=== PATIENT | male | born 1945 | race Caucasian/White ===

== ENCOUNTER 2022-01-29 15:32 | Observation (INO) | payer MEDICARE, BC, SELFPAY ==
[2022-01-29] VITALS (8 sets, daily range): BP systolic 135–163; BP diastolic 75–94; PULSE 62–92; RESP 16–18; TEMP 36.4–37.1; O2SAT 94–98; BMI 30.8
--- NOTE | 2022-01-29 15:18 | EKG12_ITS ---
Test Reason : POST OP Blood Pressure : / mmHG Vent. Rate : 082 BPM Atrial Rate : 082 BPM P-R Int : 280 ms QRS Dur : 144 ms QT Int : 424 ms P-R-T Axes : 072 -50 056 degrees QTc Int : 495 ms Sinus rhythm with 1st degree A-V block with occasional Premature ventricular complexes Left axis deviation Left bundle branch block Abnormal ECG Confirmed by SONAL EHRNANDEZ, NATALEE ([id number]), editor department ROMAINE BRIGGS ([id number]) on 02/04/2022 8:41:46 AM Referred By: EVELIN Confirmed By:NATALEE PRUITT MD
[2022-01-29] MEDS: 0.9% Saline Lock 10 ML Syringe IV (15:52)
[2022-01-29] MEDS: 0.9% Normal Saline 1,000 ML 75 ML IV (15:52)
[2022-01-29] MEDS: Ondansetron 4 MG/2 ML Vial IV (15:52)
[2022-01-29 16:10] LABS: Anion Gap 8 (5-15); BUN 32 mg/dL (7-18); BUN/Creat Ratio 15.2 RATIO (10-20); Calcium,Total 9.1 mg/dL (8.5-10.1); Chloride 101 mmol/L (98-107); Creatinine, Serum 2.11 mg/dL (0.70-1.30); EST Glomerular Filtration Rate 33 mL/min (>60); Est Glom Filt Rate - Afr Amer 39 mL/min (>60); Estimated Creatinine Clearance 30.27 ml/min; Glucose 121 mg/dL (74-106); Potassium 3.4 mmol/L (3.5-5.1); Sodium Level 136 mmol/L (136-145)
--- NOTE | 2022-01-29 21:58 | HP.PCM_ITS ---
HPI - General General Date of Admission: 01/29/22 HPI Narrative NIKKO WASHBURN, is a 76 M who presents high-grade obstruction in the right side due to a large ureteral calculi also has a right renal calculi PFSH Medical History (Updated 01/29/22 @ 21:[address] Carlos Mark MD) Hypertension Kidney stones Non-smoker Restless legs Scarlet fever Home Medications amlodipine 2.5 mg tablet 10 mg PO DAILY Check with primary doctor 07/23/13 [History Last Taken 01/29/22 08:00] oxycodone-acetaminophen 5 mg-325 mg tablet 1 - 2 tab PO Q4H PRN PRN Pain #20 tabs 07/23/13 [Rx Last Taken 01/29/22 11:00] Sulindac 150 mg PO BID STOMACH POLYP 07/31/13 [History Last Taken 01/29/22 10:00 ] triamterene-hydrochlorothiazid 37.5 mg PO/SL DAILY BP 01/29/22 [History Last Taken 01/29/22 10:00] Allergy/AdvReac Type Severity Reaction Status Date / Time No Known Allergies Allergy Verified 07/23/13 14:12 Social History Smoking Status: Never smoker ROS ROS Narrative Severe right flank pain Vital Signs Vital Signs Vital Signs: 01/29/22 15:28 01/29/22 19:30 01/29/22 21:09 Temperature 98.0 F 97.9 F Temperature Source Oral Oral Pulse Rate 62 71 78 Respiratory Rate 16 16 16 Blood Pressure 141/82 H 143/81 H Blood Pressure [BP] 163/83 H Blood Pressure Mean 101 101 Blood Pressure Mean [BP] 109 Blood Pressure Source Monitor Monitor Blood Pressure Source [BP] Monitor Blood Pressure Position Semi-Fowlers Semi-Fowlers Blood Pressure Position [BP] Supine Blood Pressure Location Left Arm Right Arm Blood Pressure Location [BP] Left Arm Pulse Ox 94 97 98 Oxygen Delivery Method Room Air Room Air Room Air Weight Weight: 97.4 kg Body Mass Index (BMI) 30.8 Physical Exam Const alert and oriented x3 General Appearance: cooperative HEENT normocephalic, head/scalp atraumatic, EAC's normal and TM's normal bilaterally Eyes PERRL and EOMs intact bilaterally Pupil: sluggish Neck no lymphadenopathy, supple and no JVD General: trachea midline Lymph Lymphatic: no lymphadenopathy noted, lymphedema and lymphadenopathy Resp normal respiratory effort, normal air movement and clear to auscultation bilaterally Cardio regular rate, regular rhythm and peripheral pulses 2+ throughout GI soft to palpation, non-tender and non-distended Extremity normal capillary refill and no clubbing, cyanosis or edema General Extremity: no tenderness to palpation of joints or extremities Skin no rashes or lesions noted General Skin Exam: turgor normal Lesions: no lesions Rashes: no rashes Neuro CN's II-XII intact bilaterally Speech: speech normal Motor Exam: strength 5/5 throughout; Negative for general weakness Psych thought process normal, cooperative and affect normal Appearance: appropriate Results Medical Records Data Attestation: I reviewed the patient's medical records Lab / Micro Data Attestation: I reviewed the patient's lab results. Result Diagrams: 01/29/22 15:43 Labs: Laboratory Results - last 24 hr 01/29/22 15:43: Sodium 136, Potassium 3.4 L, Chloride 101, Carbon Dioxide 27.0, Anion Gap 8, BUN 32 H, Creatinine 2.11 H, Estim Creat Clear Calc 30.27, Est GFR (MDRD) Af Amer 39 L, Est GFR (MDRD) Non-Af 33 L, BUN/Creatinine Ratio 15.2, Glucose 121 H, Calcium 9.1 Assessment & Plan Assessment/Plan (1) Kidney stones: PLAN: Plan for right ureteroscopy laser lithotripsy of stone and ureter and stent placement may have to treat the other stone with shockwave lithotripsy later.
[2022-01-29] MEDS: Cefazolin 1 GM/50 ML BAG IV (22:00)
--- NOTE | 2022-01-29 22:31 | DCINST_ITS ---
Discharge Instructions Diet Discharge Diet: No restrictions Follow Up Care Please Follow Up With: Carlos Mark MD Test Results: Test results from this visit will be discussed in further detail at your follow- up appointment, if applicable. Discharge Plan Admission Admit Date/Time: 01/29/22 15:32 Primary Reason for Your Visit: kidney stones Attending Provider: Carlos Mark Primary Care Provider: Andreas Calderon Discharge Orders/Prescriptions Prescriptions: Continued amlodipine 2.5 MG tablet 10 mg PO DAILY MDD BP oxycodone-acetaminophen 1 TABLET tablet 1 - 2 tab PO Q4H PRN PRN (Reason: Pain) Qty: 20 0RF Sulindac 150 mg PO BID triamterene-hydrochlorothiazid 37.5 mg PO/SL DAILY Referrals / Follow Up: Carlos Mark MD [STAFF PHYSICIAN] - Andreas Calderon MD [Primary Care Provider] -
--- NOTE | 2022-01-29 22:33 | PCM.OPRPT ---
Report of Operation Date of Procedure: 01/29/22 Pre-Operative Diagnosis: right obstruction ureteral calculi Post-Operative Diagnosis: same and right renal calculi Surgery/Procedure Performed:: Cystoscopy, balloon dilation of right ureter, right ureteroscopy laser lithotripsy of stone and stent placement. Description of Surgical Findings:: This is a patient who presents to the hospital for treatment for an obstructing distal ureter calculi. I discussed with the patient how the surgery would be performed and we reviewed the risks and benefits of the surgery. The risk and benefits include the risk of failure to remove the stone completely and that the patient may need multiple procedures. We discussed the risk of an infection, the risk of bleeding. We discussed the very rare risk of serious complicated injury to the ureter. The patient understands that if the stone is not able to be removed safely that we may abort the procedure and place a stent. After full discussion and all questions address with the patient the consent form was signed the side was marked appropriately and the patient was taken back to the operating room for the procedure. The patient was taken back to the operating room. After induction of anesthesia by the anesthesiology team the patient was placed in dorsolithotomy position. The genitals were prepped and draped in usual sterile fashion. I went into the bladder with a 21 Kiswahili rigid cystourethroscope through the urethra. Upon entering the bladder I inspected the trigone the left and right ureteral orifice and the bladder itself. I then cannulated the Right ureteral orifice and advanced a 0.038 Glidewire up into the kidney. Then over the Glidewire I advanced a 5 Fr Ureteral catheter and performed a retrograde pyelogram with about 10cc of contrast, to delineate the anatomy and identify the stone location. Then a ureteral balloon dilator was advanced over the wire and the distal ureter was balloon dilated with a 12 Fr x 5cm balloon dilator. After 3 minutes of dilating the ureter the balloon was backloaded off the 0.038 glidewire then the safety wire was left in place. I then placed a second 0.038 Guidewire as a working wire and over the working 0.038 guidewire I went in with a Flexible 7.9fr ureteroscope. I was able to go inside with the 7.9Fr flexible utereroscope and I pulled out the working guidewire and then through the 7.9 fr flexible ureteroscope I ascended up the ureter with direct visualization until the stone was located in the proximal urerter, then I engaged the stone with laser lithotripsy using a 270miron laser fiber with energy setting of 6 Hertz and 0.6 J until the stone was lasered into tiny little pieces that should pass on their own. I could not reach the other stone in the kidney so I decided to place a stent and bring him back for ESWL. After successful laser lithotripsy of the stone and stone fragements, a retrograde pyelogram was performed with 10cc of contrast and no extravasation of contrast or perforation was identified in the ureter. I then backed out of the ureter left the wire in place and then over the 0.038 guidewire I placed a double coiled pigtail ureteral stent. The ureteral stent was advanced over the 0.038 guidewire under direct fluoroscopic guidance and direct cystoscopic visual guidance, once the stent was in good position I pulled the wire and the stent coiled in the kidney and bladder in good position. I then drained the patient's bladder and the cystoscope was removed and the patient was taken back to the recovery room in good position. The patient was given discharge instructions to call the office for instructions. Surgeon: Carlos Mark Type of Anesthesia: General Drains: stent Admit VTE Documentation VTE Present on Admission: No VTE Mechan Device Prophylaxis: SCD's VTE Pharm Prophylaxis ordered?: No
--- NOTE | 2022-01-29 22:42 | EKG12_ITS ---
Test Reason : PRE OP Blood Pressure : / mmHG Vent. Rate : 067 BPM Atrial Rate : 067 BPM P-R Int : 304 ms QRS Dur : 150 ms QT Int : 450 ms P-R-T Axes : 087 -17 107 degrees QTc Int : 475 ms Sinus rhythm with 1st degree A-V block with Premature atrial complexes Left bundle branch block Abnormal ECG Confirmed by SONAL HERNANDEZ, NATALEE ([id number]), senior editor ROMAINE BRIGGS ([id number]) on 02/04/2022 9:00:17 AM Referred By: BLAZE Confirmed By:NATALEE PRUITT MD
[2022-01-29] MEDS: Lactated Ringers 1,000 ML 15 ML IV (23:14)
[2022-01-29 23:23] LABS: Troponin-I HS 48 pg/mL (3.0-78.0)
--- NOTE | 2022-01-29 23:57 | NURSING ---
pt back from Sx. pt called his for an update.
[2022-01-30 01:37] VITALS: BP 149/87; PULSE 71; RESP 16; TEMP 36.5; O2SAT 94
[2022-01-30 03:43] VITALS: BP 151/85; PULSE 65; RESP 16; TEMP 36.6; O2SAT 99
[2022-01-30 08:20] VITALS: BP 142/80; PULSE 68; RESP 18; TEMP 37.1; O2SAT 94
[2022-01-30] MEDS: Triamterene 37.5MG/Hctz 25MG Capsule 1 CAP PO (08:23)
[2022-01-30] MEDS: amLODIPine 10 MG Tablet PO (08:23)
--- NOTE | 2022-01-30 10:15 | PCM.PN.BLA ---
Progress Note s/p laser of right ureteral calculi, late last night, anesthesia requested a cardiology consult for new LBBB, pt stable no symptoms, cardiology questioned the urgency of inpatient consult and I agreed to discharge patient and can see cardiology as an outpatient. my office gabriella call him for instruction on treatment of the remaining stones.
[2022-01-30 11:31] VITALS: BP 146/89; PULSE 70; RESP 18; TEMP 36.6; O2SAT 92
== END 2022-01-30 12:51 | disposition home or self-care (01) ==
PROVIDERS: Anesthesiology; Admitting Provider Urology; PCP Family Medicine Geriatric Medicine; Visit Provider Urology
PROC: 0TJ98ZZ Inspection of Ureter, Via Natural or Artificial Opening Endoscopic (ICD-10-PCS; CPT 52352; principal; 2022-01-29 19:45)
DX: N20.2 Calculus of kidney with calculus of ureter (principal); I10 Essential (primary) hypertension; Z79.899 Other long term (current) drug therapy; G25.81 Restless legs syndrome
CPT/HCPCS: 52356; 50706; 00918; 76000; 80048; 84484; 93005; 96361; 96374; 99218; J7030; J7120; A4216; C1726; C1769; C2617; G0378; J2405

== ENCOUNTER 2022-02-25 08:45 | Day surgery (SDC) | payer MEDICARE, BC, SELFPAY ==
--- NOTE | 2022-02-25 08:53 | RAD_ITS ---
EXAM: XR ABDOMEN, 1 VIEW CLINICAL INDICATION: RIGHT KIDNEY STONE/PREOP TECHNIQUE: Frontal supine view of the abdomen/pelvis. This report was created using [employer] report generation technology. COMPARISON: None. FINDINGS: LOWER THORAX: No acute pathology. INTRAPERITONEAL SPACE: Multiple surgical sutures are seen in the abdomen. GASTROINTESTINAL TRACT: Unremarkable. Non-obstructive. No bowel or stomach distention. ORGANS: Right ureteral stent is in place. There is a right calyceal stone present. No organomegaly. BONES/JOINTS: No acute pathology. SOFT TISSUES: No acute pathology. RAD/Abdomen Single View IMPRESSION: Right ureteral stent in good position. There is a right kidney stone present. Electronically Signed: Duane Pozo MD at 3:00 EDT ,
[2022-02-25 09:30] VITALS: BP 173/80; PULSE 84; RESP 18; TEMP 36.2; O2SAT 100; BMI 31.6
[2022-02-25] MEDS: Lactated Ringers 1,000 ML 15 ML IV (09:44)
--- NOTE | 2022-02-25 12:54 | HP.PCM_ITS ---
HPI - General General Date of Admission: 02/25/22 Chief Complaint: Right kidney stones HPI Narrative NIKKO WASHBURN, is a 76 M who presents right shockwave lithotripsy for stones in the right kidney he has a stent in place he had a prior ureteroscopy and laser for stone in the ureter. [facility] Medical History (Updated 02/18/22 @ 13:05 by Blanche Brand) Cardiology follow-up encounter Familial polyposis History of edema History of irregular heartbeat History of pain when walking History of stress test Hypertension Kidney stones Non-smoker Prostate disease Restless legs Scarlet fever Shortness of breath on exertion Wears glasses Home Medications amlodipine 2.5 mg tablet 10 mg PO DAILY Check with primary doctor 07/23/13 [History Last Taken 02/25/22 07:00] Sulindac 150 mg PO BID 07/31/13 [History Last Taken 01/29/22 10:00] triamterene-hydrochlorothiazid 37.5 mg PO/SL DAILY BP 01/29/22 [History Last Taken 01/29/22 10:00] tumeric 100 mg-matt 150 mg-olive 50 mg-oreg 150 mg-caprylate capsule 1 cap PO DAILY 02/18/22 [History Last Taken Unknown] zolpidem 10 mg tablet (Ambien) 5 mg PO QHS 02/18/22 [History Last Taken Unknown] Allergy/AdvReac Type Severity Reaction Status Date / Time No Known Allergies Allergy Verified 02/25/22 09:35 Surgical History (Updated 02/18/22 @ 13:05 by Blanche Brand) History of colostomy reversal History of cystoscopy History of partial colectomy Hx of colonoscopy Social History Smoking Status: Never smoker Vital Signs Vital Signs Vital Signs: 02/25/22 09:30 02/25/22 09:30 Temperature 97.1 F L Temperature Source Temporal Pulse Rate 84 Respiratory Rate 18 Respiratory Pattern Normal Blood Pressure 173/80 H Blood Pressure Mean 111 Blood Pressure Source Monitor Blood Pressure Position Sitting Blood Pressure Location Left Arm Pulse Ox 100 Oxygen Delivery Method Room Air Weight Weight: 97 kg Body Mass Index (BMI) 31.6 Physical Exam Const alert and oriented x3 General Appearance: cooperative HEENT normocephalic and head/scalp atraumatic Eyes PERRL and EOMs intact bilaterally Neck supple, no JVD and no carotid bruits Resp normal respiratory effort, normal air movement and clear to auscultation bilaterally Cardio regular rate and no murmurs GI normal to inspection, nondistended, normoactive bowel sounds and soft to palpation Extremity normal capillary refill General Extremity: no tenderness to palpation of joints or extremities; Negative for edema Skin no rashes or lesions noted and no wounds General Skin Exam: no breakdown Neuro CN's II-XII intact bilaterally Psych affect normal Appearance: appropriate Results Medical Records Data Attestation: I reviewed the patient's medical records Lab / Micro Data Attestation: I reviewed the patient's lab results. Assessment & Plan Assessment/Plan (1) Kidney stones: PLAN: Plan for right shockwave lithotripsy here he has a stent in place he had prior ureteroscopy for stone in the right ureter.
--- NOTE | 2022-02-25 12:59 | DCINST_ITS ---
Discharge Instructions Diet Discharge Diet: No restrictions Activity Discharge Activity: Return to Normal Activity Dressing / Incision Call your doctor if your incision/area has: Continuous Slow Oozing Follow Up Care Please Follow Up With: Carlos Mark MD Test Results: Test results from this visit will be discussed in further detail at your follow- up appointment, if applicable. Discharge Plan Admission Primary Reason for Your Visit: Right ESWL Attending Provider: Carlos Mark Primary Care Provider: Andreas Calderon Discharge Orders/Prescriptions Prescriptions: New oxycodone-acetaminophen 5-325 mg tablet 1 tab PO Q6H PRN (Reason: pain) 7 Days Qty: 14 0RF No Action amlodipine 2.5 MG tablet 10 mg PO DAILY MDD BP Sulindac 150 mg PO BID triamterene-hydrochlorothiazid 37.5 mg PO/SL DAILY uvxvvzn-iqsh-aedib-oreg-capryl 100 mg-150 mg- 50 mg-150 mg Capsule 1 cap PO DAILY zolpidem [Ambien] 10 mg Tablet 5 mg PO QHS Referrals / Follow Up: Carlos Mark MD [Med Staff - Active Staff] - Andreas Calderon MD [Primary Care Provider] - Disposition Disposition (needs filled in before D/C Order can be placed): Home, Self Care
[2022-02-25 13:57] VITALS: BP 154/89; BP 173/80; PULSE 82; RESP 18; TEMP 36.3; O2SAT 91
[2022-02-25 14:00] VITALS: BP 154/118; BP 173/80; PULSE 82; RESP 18; O2SAT 90
--- NOTE | 2022-02-25 14:09 | PCM.OPRPT ---
Report of Operation Date of Procedure: 02/25/22 Pre-Operative Diagnosis: Right kidney stone status post stent Post-Operative Diagnosis: Same Surgery/Procedure Performed:: Right extracorporeal shockwave lithotripsy Description of Surgical Findings:: Patient presents to the hospital for treatment of a kidney stone with shockwave lithotripsy. In the preoperative area and x-ray was done to confirm the location of the stone. The x-ray was reviewed and the stone location was reviewed. In the preoperative setting I spoke with the patient regarding the treatment of the stone how the treatment would be conducted and the expectations after surgery. The patient understands there is a risk of bleeding and infection. Also discussed the very rare risk of hematoma or damage to the kidney. We also discussed the risk that the shockwave machine will fail to break the stone adequately and that the patient may need other surgical procedures. We also discussed the possibility that the patient may need a stent after the procedure. After reviewing the procedure with the patient, the patient is signed the consent form all the patient's questions were addressed and was taken back to the operating room for treatment of a kidney stone. Patient was taken back to the operating room, patient was identified by the nursing staff, we identified the side of the treatment and the patient side of treatment had been marked by my initials. The patient underwent general anesthetic and was placed supine on the lithotripter table. We then used fluoroscopy to identify the stones on the right side and the stent in good position. We then positioned the patient under the lithotripter and we used triangulation technique to identify the location of the stone and then we made sure that the stone was engaged in the F2 focal point of F2 Donier lithoprior machine. Once the patient was positioned appropriately and the stone was identified and placed in the F2 focal point of the lithotripter machine we then proceeded with shockwave lithotripsy. In the beginning the shockwave was delivered at a rate of 90 shocks per minute, we monitor the EKG for any ectopy. The power was slowly increased to 5 kV and subsequently at the 7 kV. We then proceeded with the treatment we move the therapy had around during the treatment to make sure the stone stayed in the F2 focal point during the entire treatment and after 3000 shockwaves were delivered to the stone under fluoroscopic guidance the treatment was completed. The patient was given instructions to call the office to make an a follow-up appointment with an xray to evaluate the success of the treatment, pateint understands that its possible the stones may need another procedure.At this point the patient's anesthetic was reversed patient was extubated and taken back to the PACU in stable condition. Surgeon: Carlos Mark Type of Anesthesia: General Drains: stent in place
[2022-02-25 14:14] VITALS: BP 165/97; BP 173/80; PULSE 76; RESP 18; O2SAT 96
[2022-02-25 14:17] VITALS: BP 162/95; BP 173/80; PULSE 77; RESP 18; TEMP 36.8; O2SAT 95
[2022-02-25 15:23] VITALS: BP 138/78; BP 173/80; PULSE 77; RESP 16; TEMP 36.1; O2SAT 95
== END 2022-02-25 15:38 | disposition home or self-care (01) ==
LOC: SDC 08:47 → AC 08:49
PROVIDERS: PCP Family Medicine Geriatric Medicine; Referring Provider Urology; Visit Provider Urology
PROC: (CPT 50590; principal; 2022-02-25 10:50)
DX: N20.0 Calculus of kidney (principal); I10 Essential (primary) hypertension; D12.6 Benign neoplasm of colon, unspecified; Z79.899 Other long term (current) drug therapy
CPT/HCPCS: 50590; 00873; 74018; J7120; J2405

== ENCOUNTER → 2022-03-05 | Outpatient (CLI) | payer MEDICARE, BC, SELFPAY ==
--- NOTE | 2022-03-05 12:35 | RAD_ITS ---
INDICATION: CALCULUS OF KIDNEY EXAMINATION/TECHNIQUE: X-RAY - XR Abdomen 1 View COMPARISON: 02/25/2022 FINDINGS: Clips visualized in the renal beds and in the left lower abdomen. Right double-J ureteral stent visualized in position. BOWEL GAS PATTERN: Non-obstructive. No bowel or stomach distention. FREE AIR: Not assessed on a single supine view. ORGANOMEGALY: Not seen. CALCIFICATIONS: No abnormal calcifications observed, note is made that bowel loops are visualized superimposed over the renal beds.. LOWER CHEST: No acute pathology. BONES AND SOFT TISSUES: Dextroscoliosis of the lumbar spine is visualized. RAD/Abdomen Single View IMPRESSION: No abnormal calcifications observed, note is made that bowel loops are visualized superimposed over the renal beds.. Electronically Signed: Clive Carey MD at 12:58 EDT ,
== END | disposition home or self-care (01) ==
LOC: RAD 12:32
PROVIDERS: PCP Family Medicine Geriatric Medicine; Referring Provider Urology; Visit Provider Urology
DX: N20.0 Calculus of kidney (principal)
CPT/HCPCS: 74018

== ENCOUNTER → 2022-03-12 | Outpatient (CLI) | payer MEDICARE, BC, SELFPAY ==
[2022-06-16 15:50] LABS: Source Not Provided
== END | disposition home or self-care (01) ==
LOC: LABSPEC 16:50
PROVIDERS: PCP Family Medicine Geriatric Medicine; Referring Provider Urology; Visit Provider Urology
DX: N20.0 Calculus of kidney (principal); R35.0 Frequency of micturition
CPT/HCPCS: 82360; 87086

== ENCOUNTER → 2022-05-01 | Outpatient (CLI) | payer MEDICARE, BC, SELFPAY ==
--- NOTE | 2022-05-01 06:48 | ECHOCS_ITS ---
Reason For Study: Pre Op Procedure This was a 2D Doppler, Color Flow transthoracic echocardiogram. The study was technically difficult. Contrast injection was performed. Exam performed in department. Left Ventricle Normal LV size. Left ventricular systolic function is normal. The estimated ejection fraction is 55 %. Septal motion consistent with IVCD. Unable to assess diastolic dysfunction. No regional wall motion abnormalities noted. Right Ventricle Normal RV size. Normal systolic function. Atria Normal left atrium. Normal right atrium. No doppler evidence for ASD. Mitral Valve There is no mitral annular calcification. Normal mitral valve. Mild (1+) mitral valve insufficiency. Tricuspid Valve Normal tricuspid valve. Mild eccentric tricuspid valve insufficiency. Unable to estimate RV systolic pressure due to insufficient tricuspid regurgitant envelope. Aortic Valve Trisinus/trileaflet aortic valve. Mild focal aortic valve calcification. Trivial aortic valve insufficiency. Pulmonic Valve The pulmonic valve is not well visualized. Great Vessels Normal sized aortic root. Pericardium/Pleural No pericardial effusion. Medication 20 gauge I.V. with prn adaptor inserted into right arm. Diluted definity 2.5ml given slow IV push to enhance endocardial definition. MMode/2D Measurements & Calculations LVIDd: 4.8 cm IVSd: 1.00 cm Ao root diam: 3.7 cm LVIDs: 3.4 cm LVPWd: 1.4 cm LA dimension: 3.9 cm RVDd: 3.5 cm FS: 30.4 % LAV(MOD-bp): 48.1 ml LA A4 area: 15.9 cm2 RA A4 area: 14.3 cm2 LAV(MOD-bp) Indexed: 22.6 ml/m2 LAV(MOD-sp2): 42.7 ml LAV(MOD-sp4): 43.1 ml Doppler Measurements & Calculations MV E max casey: 109.3 cm/sec Ao V2 max: 143.0 cm/sec AI max casey: 380.3 cm/sec Ao max P.2 mmHg AI max P.9 mmHg Ao V2 mean: 100.0 cm/sec AI dec slope: 210.1 cm/sec2 Ao mean P.7 mmHg AI P1/2t: 530.1 msec Ao V2 VTI: 27.1 cm LV V1 max: 82.0 cm/sec PA V2 max: 92.4 cm/sec LV V1 max P.7 mmHg PA V2 mean: 66.8 cm/sec LV V1 mean P.7 mmHg LV V1 mean: 63.1 cm/sec LV V1 VTI: 17.0 cm ECHO/Echo Complete W/ Contrast Interpretation Summary The study was technically difficult. Contrast injection was performed. Left ventricular systolic function is normal. The estimated ejection fraction is 55 %. Septal motion consistent with IVCD. Mild (1+) mitral valve insufficiency. Mild eccentric tricuspid valve insufficiency. Mild focal aortic valve calcification. Trivial aortic valve insufficiency. Unable to estimate RV systolic pressure due to insufficient tricuspid regurgita nt envelope. Unable to assess diastolic dysfunction. Ordering Physician: Willy Conde Referring Physician: Andreas Calderon Performed By: Mukul Baumann RCS
--- NOTE | 2022-05-01 09:34 | STRESSREP ---
Stress Test Report Date: 05-01-2022 Procedure: Pharmacologic stress nuclear imaging study Indications: Abnormal ECG; left bundle branch block pattern; hyperlipidemia; hypertension; preoperative cardiovascular evaluation Consent: Per the patient Procedure: The patient underwent pharmacologic (Regadenoson 0.4mg ) evaluation with a peak heart rate of 93 beats per minute (65%predicted maximal heart rate) and a peak blood pressure of 152/82 mmHg. The baseline ECG demonstrated normal sinus rhythm; left bundle branch block pattern. The peak pharmacologic ECG demonstrated no obvious ECG changes. There was an occasional PVC pretest, during infusion, and recovery. There was no complaint of chest discomfort during pharmacologic infusion or recovery. The examination was discontinued secondary to completion of protocol. Impression: 1. Pharmacologic (Regadenoson) evaluation 2. Peak pharmacologic ECG with continued left bundle branch block pattern with no obvious ECG changes. 3. There were no cardiac dysrhythmias pretest, during pharmacologic infusion, or recovery. 4. Nuclear images pending Myocardial perfusion imaging study: Technique: The patient was injected with 14.1 millicuries of technetium 99m Cardiolite and subsequently rest SPECT Cardiolite nuclear imaging was obtained in the horizontal long, vertical long, and short axis views. The patient underwent pharmacologic (Regadenoson) evaluation with a peak heart rate of 93 beats per minute (65% percent predicted maximal heart rate) and a peak blood pressure of 152/82 mmHg. The patient was injected with 44.3 millicuries of technetium 99m Cardiolite and subsequently stress SPECT Cardiolite nuclear imaging was obtained in the horizontal long, vertical long, and short axis views. A gated Cardiolite study at peak stress was obtained. Interpretation: Rest and stress SPECT Cardiolite nuclear imaging status post realignment, normalization, and attenuation correction demonstrate a small area of subtle diminished tracer uptake near the distal anteroseptal/septal apical segments without significant change between rest and stress. There is end systolic thickening and brightening. The gated Cardiolite study demonstrates myocardial thickening and inward wall motion. The reported LVEF is 56%. Impression: 1. Rest and stress SPECT current nuclear imaging demonstrate myocardial perfusion changes appearing compatible with the patient's underlying left bundle branch block phenomena with no myocardial perfusion changes considered diagnostic for associated stress-induced myocardial ischemia. 2. The gated Cardiolite study reports an LVEF of 56%. This note was generated with [employer] software. It may contain incorrect words, spelling, and punctuation that were not noted in checking the note before signing.
== END | disposition home or self-care (01) ==
PROVIDERS: PCP Family Medicine Geriatric Medicine; Referring Provider Internal Medicine Cardiovascular Disease; Visit Provider Internal Medicine Cardiovascular Disease
DX: Z01.810 Encounter for preprocedural cardiovascular examination (principal); R94.31 Abnormal electrocardiogram [ECG] [EKG]; I44.7 Left bundle-branch block, unspecified; I10 Essential (primary) hypertension; E78.2 Mixed hyperlipidemia
CPT/HCPCS: 78452; 93017; 93306; A9500; Q9957; A4216; C8929; J2785

== ENCOUNTER 2023-02-12 11:14 | Emergency (ER) | payer MEDICARE, BC, SELFPAY ==
[2023-02-12 11:15] VITALS: BP 113/65; PULSE 110; RESP 16; TEMP 36.6; O2SAT 100; BMI 32.8
--- NOTE | 2023-02-12 11:24 | EDS_ITS ---
HPI HPI - Female History of Present Illness Chief Complaint: Siegel C/O [facility] Medical History (Updated 12/21/22 @ 12:03 by Madhuri Armenta PA, PA) Abnormal EKG Cardiology follow-up encounter Essential hypertension Familial polyposis History of edema History of irregular heartbeat History of pain when walking History of stress test Hypertension Kidney stones LBBB (left bundle branch block) Mitral valve insufficiency Mixed hyperlipidemia Non-smoker Pre-operative cardiovascular examination Prostate disease Restless legs Scarlet fever Shortness of breath on exertion Wears glasses Home Medications amlodipine 10 mg tablet 10 mg PO DAILY 04/21/22 [History Last Taken Unknown] multivitamin 1 tab PO DAILY 04/21/22 [History Last Taken Unknown] omega 0-xel-nzd-fish oil 60 mg-90 mg-500 mg capsule (Fish Oil) 1 cap PO BID 04/21/22 [History Last Taken Unknown] sulindac 150 mg tablet 150 mg PO BID 04/21/22 [History Last Taken Unknown] triamterene 37.5 mg-hydrochlorothiazide 25 mg capsule 1 cap PO DAILY 04/21/22 [History Last Taken Unknown] zolpidem 10 mg tablet (Ambien) 5 mg PO QHS PRN sleep 04/21/22 [History Last Taken Unknown] hydralazine 25 mg tablet 25 mg PO BID #180 tabs 06/22/22 [Rx Last Taken Unknown] oxybutynin chloride 5 mg tablet 5 mg PO BID PRN bladder spasms #14 tabs 02/12/23 [Rx Last Taken Unknown] sulfamethoxazole 800 mg-trimethoprim 160 mg tablet (Bactrim DS) 1 tab PO BID 7 days #14 tabs 02/12/23 [Rx Last Taken Unknown] Allergy/AdvReac Type Severity Reaction Status Date / Time No Known Allergies Allergy Verified 02/12/23 11:18 Family History Father Cancer Colon Mother Irregular heartbeat COPD (chronic obstructive pulmonary disease) Grandmother CVA (cerebral vascular accident) Surgical History History of colostomy reversal History of cystoscopy History of partial colectomy History of total right knee replacement Hx of colonoscopy Social History Smoking Status: Never smoker alcohol intake: current details: Rare substance use type: does not use caffeine: Yes Type: coffee EXAM Physical Exam Const Vital Signs: 02/12/23 11:15 02/12/23 12:35 02/12/23 13:32 Temperature 97.8 F 98 F 97.4 F L Temperature Source Temporal Oral Oral Pulse Rate 110 H 78 86 Respiratory Rate 16 16 16 Blood Pressure 113/65 128/76 H 138/76 H Blood Pressure Mean 81 93 96 Pulse Ox 100 Oxygen Delivery Method Room Air Room Air [facility] [place] Narrative Medical decision making narrative: HISTORY OF PRESENT ILLNESS: 77-year-old male here for an inability urinate the catheter. States this was placed yesterday. Concern 15 minutes he gets painful spasm in the lower abdomen. REVIEW OF SYSTEMS: Pertinent positives: Bladder spasms Pertinent negatives: Syncope, abdominal pain, fever, vomit PHYSICAL EXAM: Nursing triage notes reviewed, Vital signs reviewed Constitutional: please see mdm HENT: MMM Eyes: Pupils equal round and reactive to light, Extraocular muscles intact Neck: No stridor, no JVD, full neck ROM Lungs: Clear to auscultation, No wheezing or rales. No increased work of breathing, no conversational dyspnea, no accessory muscle use, no nasal flaring. No respiratory distress noted Heart: Regular rate and rhythm, No murmurs, No rubs and No gallops, 2+ distal pulses (radial, femoral, posterior tibial) in all extremities Abdomen: Soft, there is no tenderness, rigidity, rebound or guarding, no obvious peritoneal signs, no palpable pulsatile abdominal masses, no auscultated abdominal bruit : No CVAT Extremities: No edema Neuro: No focal neurological deficits, cranial nerves II through XII intact, 5/5 strength in all extremities. Intact sensation to light touch in all extremities, 2+ reflexes bilateral patella tendons. Normal gait. No ataxia. Skin: No rash or lesions noted MEDICAL DECISION MAKING: Chief Complaint: Catheter occluded External records reviewed: No recent ED visits or hospitalizations noted ALL IMAGES (IF OBTAINED) HAVE BEEN PERSONALLY REVIEWED AND INTERPRETED BY HERB ENNIS. UA shows evidence of infection [facility] Narrative: Patient was initially tachycardic otherwise hemodynamically stable, afebrile and nontoxic-appearing I considered the following differential diagnosis: Urinary retention, UTI, bladder spasms UA with evidence of UTI will send culture and give empiric Bactrim. Treated the patient's bladder spasm with oxybutynin and Valium. Will discharge with oxybutynin. Will prescribe Bactrim as an outpatient. The patient and/or family, caregivers express understanding. The patient and/or family, caregivers agrees with the plan. Total critical care time today provided was at least 0 minutes. This excludes separately billable procedures. Critical care time (if documented) is secondary to the patient having high probability of clinically significant/life threatening deterioration in the patient's condition which required my urgent intervention. Shared decision making: I will have a discussion with the patient and or visitors regarding risk/ benefits of further testing or admission. They will be made aware of of the risk/benefits inherent in this decision they will be given the opportunity to voice understanding. Lab Data Attestation: I reviewed the patient's lab results. Lab results narrative: UA with evidence of infection will send for culture Labs: Laboratory Results - last 24 hr 02/12/23 12:37 Urine Color Yellow Urine Clarity Sl. Cloudy Urine pH 5.0 Ur Specific [place] 1.025 Urine Protein 500 H Urine Glucose (UA) Normal Urine Ketones 5 H Urine Occult Blood 250 H Urine Nitrite Positive H Urine Bilirubin 3 H Urine Urobilinogen 4 H Ur Leukocyte Esterase 500 H Urine RBC > 100 SEEN Urine WBC >100 SEEN Ur Squamous Epith Cells 0 SEEN Urine Bacteria 1+ Urine Mucus 0 SEEN Discharge Plan Triage Chief Complaint: Siegel C/O ED Provider: Kasi Johnson Dx/Rx/DC Orders Prescriptions: New sulfamethoxazole-trimethoprim [Bactrim DS] 800-160 mg tablet 1 tab PO BID 7 Days Qty: 14 0RF oxybutynin chloride 5 mg tablet 5 mg PO BID PRN (Reason: bladder spasms) Qty: 14 0RF No Action triamterene-hydrochlorothiazid 37.5-25 mg capsule 1 cap PO DAILY omega 1-oii-gnz-fish oil [Fish Oil] 60-90-500 mg capsule 1 cap PO BID multivitamin Tablet 1 tab PO DAILY amlodipine 10 mg tablet 10 mg PO DAILY sulindac 150 mg tablet 150 mg PO BID hydralazine 25 mg tablet 25 mg PO BID Qty: 180 3RF zolpidem [Ambien] 10 mg tablet 5 mg PO QHS PRN (Reason: sleep) Primary Care Provider: Andreas Calderon Referrals: Andreas Calderon MD [Primary Care Provider] - Activity Restrictions/Additional Instructions: Thank you for trusting us with your care today! Please take Tylenol (2 pills, 650 mg), ibuprofen (2 pills, 400 mg) every 6 hours as needed for pain and fever control. Please take antibiotics as prescribed. Please take oxybutynin as prescribed. This medicine will attempt to control your bladder spasms. Please return to the emergency department if your symptoms change or worsen. Specifically if you not urinate for greater than 12 hours with your Siegel catheter stops draining urine Please follow with your primary care physician for further outpatient evaluation and management. Disposition Disposition: Home, Self Care Discharge Date/Time: 02/12/23 13:34
[2023-02-12 12:35] VITALS: BP 128/76; PULSE 78; RESP 16; TEMP 36.6
--- NOTE | 2023-02-12 12:41 | ED.RN ---
Urine collected and sent to lab
[2023-02-12 12:46] LABS: Mucous, Urine 0 SEEN /hpf (<or=2+); Squamous Epithelial Cells - UA 0 SEEN /hpf (0-5)
[2023-02-12 12:48] LABS: Color, Urine Yellow (Yellow); Glucose, Dipstick Normal (Normal); Ketone-Dipstick 5 mg/dl (Negative); Leukocyte Esterase-Dipstick 500 /ul (Negative); Nitrite-Dipstick Positive (Negative); Occult Blood-Urine 250 /ul (Negative); Protein-Dipstick 500 mg/dl (Negative); Specific Gravity, Urine 1.025 (1.002-1.030); Urine Clarity Sl. Cloudy (Clear); Urine Urobilinogen 4 mg/dl (Normal)
[2023-02-12 12:49] LABS: Urine Bilirubin Dipstick 3 mg/dL (Negative)
[2023-02-12 13:01] LABS: Red Blood Cells-Urine > 100 SEEN /hpf (0-5); White Blood Cells >100 SEEN /hpf (0-5)
[2023-02-12 13:02] LABS: Bacteria 1+ /hpf (None Seen)
[2023-02-12] MEDS: diazePAM 2 MG Tablet PO (13:04)
[2023-02-12] MEDS: Smz/Tmp Ds Tablet 1 TABLET PO (13:04)
[2023-02-12] MEDS: Oxybutynin 5 MG Tablet PO (13:09)
[2023-02-12 13:32] VITALS: BP 138/76; PULSE 86; RESP 16; TEMP 36.3
== END 2023-02-12 13:34 | disposition home or self-care (01) ==
PROVIDERS: Emergency Provider Emergency Medicine; PCP Family Medicine Geriatric Medicine; Visit Provider Emergency Medicine
DX: T83.098A Other mechanical complication of other urinary catheter, initial encounter (principal); N32.89 Other specified disorders of bladder; I10 Essential (primary) hypertension; E78.2 Mixed hyperlipidemia; N39.0 Urinary tract infection, site not specified; Y73.8 Miscellaneous gastroenterology and urology devices associated with adverse incidents, not elsewhere classified
CPT/HCPCS: 81001; 87086; 87088; 87186; 99283

== ENCOUNTER 2023-02-14 22:50 | Emergency (ER) | payer MEDICARE, BC, SELFPAY ==
[2023-02-14 22:51] VITALS: BP 188/88; PULSE 101; RESP 20; TEMP 36.4; O2SAT 90; BMI 33.7
[2023-02-14] MEDS: Morphine 4 MG/ML Syringe IV (23:47)
[2023-02-14] MEDS: Ondansetron 4 MG/2 ML Vial IV (23:47)
[2023-02-14] MEDS: Lidocaine Jelly 2% 20 ML Syringe (URO-JET) 1 APPLIC TOPICAL (23:48)
[2023-02-14] MEDS: 0.9% Normal Saline 1,000 ML 999 ML IV (23:51)
[2023-02-14 23:58] LABS: Anion Gap 11 (5-15); BUN 41 mg/dL (7-18); BUN/Creat Ratio 15.9 RATIO (10-20); Calcium,Total 9.2 mg/dL (8.5-10.1); Chloride 105 mmol/L (98-107); Creatinine, Serum 2.58 mg/dL (0.70-1.30); EST Glomerular Filtration Rate 26 mL/min (>60); Est Glom Filt Rate - Afr Amer 31 mL/min (>60); Estimated Creatinine Clearance 22.83 ml/min; Glucose 122 mg/dL (74-106); Potassium 3.2 mmol/L (3.5-5.1); Sodium Level 137 mmol/L (136-145)
[2023-02-15 00:31] LABS: Absolute Lymphocyte Count 1.51 X10^3/uL (0.83-4.51); Absolute Neutrophil Count 10.5 X10^3/uL (2.0-7.7); Basophil# 0.07 X10^3/uL; Basophil% 0.5 % (0-1); Eosinophil# 0.45 X10^3/uL; Eosinophils% 3.3 % (0-5); Hematocrit 43.1 % (40-54); Hemoglobin 14.3 g/dL (13.0-16.5); Lymphocyte # 1.51 X10^3/ul (0.83-4.51); Lymphocyte % 11.1 % (19-41); Mean Corp Hgb Conc 33.2 g/dL (32-36); Mean Corpuscular Hgb 29.9 pg (27.0-32.0); Mean Platelet Vol. 10.2 fl (6.2-12.0); Monocyte# 1.05 X10^3/uL; Monocyte% 7.7 % (0-10); NRBC Flagged by Analyzer 0 % (0-5); Neutrophil # 10.47 X10^3/uL (2.7-7.7); Neutrophil % 76.7 % (47-70); Platelet Count 267 K/mm3 (150-450); RBC Distribution Width CV 13.8 % (11.6-14.6); RBC Distribution Width SD 45.5 fl (35.1-43.9); Red Blood Count 4.79 M/mm3 (4.6-6.2); White Blood Count 13.6 K/mm3 (4.4-11.0)
--- NOTE | 2023-02-15 02:04 | EX.ED.DYSGE1 ---
HPI History of Present Illness Chief Complaint: Siegel C/O Informant: patient Narrative Narrative: Patient is a 77-year-old male with past medical history of hypertension hyperlipidemia and mitral valve insufficiency. He was seen recently secondary to urinary retention and had a Siegel catheter placed. After having this placed he was seen in the ER secondary to having pain and was found to have a UTI and was started on antibiotics. Patient states that he has had pain mainly in the suprapubic and genital region that does not seem to be improving with his antibiotic or taking his bladder spasm medication. Secondary to the persistent pain and inability to sleep he presents for evaluation [facility] Medical History (Updated 02/15/23 @ 04:[address] Karan Martinez, ) Abnormal EKG Cardiology follow-up encounter Essential hypertension Familial polyposis History of edema History of irregular heartbeat History of pain when walking History of stress test Hypertension Kidney stones LBBB (left bundle branch block) Mitral valve insufficiency Mixed hyperlipidemia Non-smoker Pre-operative cardiovascular examination Prostate disease Restless legs Scarlet fever Shortness of breath on exertion Wears glasses Home Medications amlodipine 10 mg tablet 10 mg PO DAILY 04/21/22 [History Last Taken Unknown] multivitamin 1 tab PO DAILY 04/21/22 [History Last Taken Unknown] omega 2-soc-nru-fish oil 60 mg-90 mg-500 mg capsule (Fish Oil) 1 cap PO BID 04/21/22 [History Last Taken Unknown] sulindac 150 mg tablet 150 mg PO BID 04/21/22 [History Last Taken Unknown] triamterene 37.5 mg-hydrochlorothiazide 25 mg capsule 1 cap PO DAILY 04/21/22 [History Last Taken Unknown] zolpidem 10 mg tablet (Ambien) 5 mg PO QHS PRN sleep 04/21/22 [History Last Taken Unknown] hydralazine 25 mg tablet 25 mg PO BID #180 tabs 06/22/22 [Rx Last Taken Unknown] oxybutynin chloride 5 mg tablet 5 mg PO BID PRN bladder spasms #14 tabs 02/12/23 [Rx Last Taken Unknown] sulfamethoxazole 800 mg-trimethoprim 160 mg tablet (Bactrim DS) 1 tab PO BID 7 days #14 tabs 02/12/23 [Rx Last Taken Unknown] lidocaine 5 % topical gel See Rx Instructions .Route .COMPLEX #113 grams 02/15/23 [Rx Last Taken Unknown] oxycodone-acetaminophen 5 mg-325 mg tablet (Percocet) 1 tab PO Q6H PRN pain 5 days #20 tabs 02/15/23 [Rx Last Taken Unknown] Allergy/AdvReac Type Severity Reaction Status Date / Time No Known Allergies Allergy Verified 02/14/23 22:51 Family History Father Cancer Colon Mother Irregular heartbeat COPD (chronic obstructive pulmonary disease) Grandmother CVA (cerebral vascular accident) Surgical History History of colostomy reversal History of cystoscopy History of partial colectomy History of total right knee replacement Hx of colonoscopy Social History Smoking Status: Never smoker alcohol intake: current details: Rare substance use type: does not use caffeine: Yes Type: coffee ROS ROS ED Constitutional Constitutional ED: Denies chills or fever(s) ENT ENT ED: Denies sore throat Cardiovascular Cardiovascular: Denies chest pain Respiratory/Chest Respiratory/Chest: Denies cough or dyspnea Gastrointestinal Gastrointestinal: Reports abdominal pain; Denies diarrhea, nausea or vomiting Musculoskeletal Musculoskeletal: Denies back pain or myalgias Integumentary Denies rash Neurologic Neurologic: Denies headache(s) Hematologic/Lymphatic Hematologic/Lymphatic: Denies easy bleeding or easy bruising EXAM Physical Exam Const Vital Signs: 02/14/23 22:51 02/15/23 02:36 Temperature 97.5 F L Temperature Source Temporal Pulse Rate 101 H 76 Respiratory Rate 20 H 16 Blood Pressure 188/88 H 134/74 H Blood Pressure Mean 121 Pulse Ox 90 99 Positive well nourished and well developed General Appearance ED: well developed HEENT Reports dry mucous membranes HEENT Narrative: Mucous membranes are dry and tacky Mouth ED: Yes dry mucous membranes Mouth: dry mucous membranes Eyes PERRL and EOMs intact bilaterally General Eye ED: Negative for scleral icterus Neck supple Neck Narrative: No nuchal rigidity or meningeal signs present Resp normal respiratory effort and clear to auscultation bilaterally Cardio regular rate and regular rhythm Rate: other Other Details: Radial pulses are plus 2 out of 4 bilaterally are equal and symmetric GI normal to inspection, nondistended, normoactive bowel sounds, non-tender and non-distended GI Narrative: Abdomen is soft nontender and nondistended with normal active bowel sounds. Patient has a large ventral hernia present that appears reducible in nature. There is no organomegaly to suggest a distended bladder. No voluntary guarding or rigidity no pulsatile mass Auscultation: normoactive bowel sounds Palpation: soft Narrative: Siegel catheter in place. There is no blood or discharge from the urethral meatus. No signs of tissue breakdown. No surrounding erythema or warmth to suggest Merna's gangrene. Back/Spine no CVA tenderness Extremity normal to inspection Neuro oriented x3, CN's II-XII intact bilaterally and no sensory deficits noted Sensorium / Orientation: alert Motor Exam: strength 5/5 throughout Psych mental status grossly normal Skin no rashes or lesions noted General Skin Exam: Negative for jaundice MDM MDM MDM Narrative Medical decision making narrative: Patient presented to the ER hypertensive but was in pain. He reported the pain was in the suprapubic and genital region where the catheter was inserted. He has a known UTI and culture was reviewed and prelim is positive for E. coli but there is no sensitivity present. At this time concern is for acute kidney injury versus urosepsis versus abdominal pathology such as diverticulitis or biliary colic or acute appendicitis. However as patient states the pain is mainly where the catheter enters the penis this is most likely catheter induced irritation. I do not feel the need for repeat urine sample as he is already on antibiotics and the urine was recently obtained and sent for culture. Patient blood work was obtained which shows mild leukocytosis and elevation to his creatinine. However chart review reveals that his creatinine recently has been persistently elevated and he is not much above baseline going against acute kidney injury. I do not feel the need for an abdominal CT as his abdomen was soft and nondistended and pain was located more in the genital region then it is the abdomen. At this time he does not show vital sign or laboratory changes to suggest urosepsis and he is not have enough deviation to his baseline creatinine to suggest MARY. Patient was given IV hydration as well as morphine and did report improvement of the pain. On reevaluation his abdomen remains soft and nonsurgical. Therefore at this time patient will be discharged with pain medication as well as topical lidocaine cream as it is most likely that his recurrent pain is related to catheter insertion irritation. He does agree to follow-up with urology as previously directed but will return to the ER if there is no improvement of symptoms History & Record Review Discussion w/independent historian: Patient and Significant other Lab Data Attestation: I reviewed the patient's lab results. Labs: Laboratory Results - last 24 hr 02/14/23 23:38 WBC 13.6 H RBC 4.79 Hgb 14.3 Hct 43.1 MCV 90.0 MCH 29.9 MCHC 33.2 RDW Std Deviation 45.5 H RDW Coeff of Ellie 13.8 Plt Count 267 MPV 10.2 Immature Gran % (Auto) 0.700 Neut % (Auto) 76.7 H Lymph % (Auto) 11.1 L [place] % (Auto) 7.7 Eos % (Auto) 3.3 Baso % (Auto) 0.5 Absolute Neuts (auto) 10.5 H Absolute Lymphs (auto) 1.51 Nucleated RBC % 0 Sodium 137 Potassium 3.2 L Chloride 105 Carbon Dioxide 21.0 Anion Gap 11 BUN 41 H Creatinine 2.58 H Estim Creat Clear Calc 22.83 Est GFR (MDRD) Af Amer 31 L Est GFR (MDRD) Non-Af 26 L BUN/Creatinine Ratio 15.9 Glucose 122 H Calcium 9.2 Discharge Plan Triage Chief Complaint: Siegel C/O ED Provider: Karan Martinez Dx/Rx/DC Orders Clinical Impression: UTI (urinary tract infection), Acute renal insufficiency, Essential hypertension Instructions: UTIs Understanding, ED Siegel Catheter, Care Prescriptions: New oxycodone-acetaminophen [Percocet] 5-325 mg tablet 1 tab PO Q6H PRN (Reason: pain) 5 Days Qty: 20 0RF lidocaine 5 % gel See Rx Instructions .ROUTE .COMPLEX Qty: 113 0RF Rx Instructions: Apply to the painful area every 3-4 hours as needed No Action triamterene-hydrochlorothiazid 37.5-25 mg capsule 1 cap PO DAILY omega 3-csb-jhq-fish oil [Fish Oil] 60-90-500 mg capsule 1 cap PO BID multivitamin Tablet 1 tab PO DAILY amlodipine 10 mg tablet 10 mg PO DAILY sulindac 150 mg tablet 150 mg PO BID hydralazine 25 mg tablet 25 mg PO BID Qty: 180 3RF zolpidem [Ambien] 10 mg tablet 5 mg PO QHS PRN (Reason: sleep) sulfamethoxazole-trimethoprim [Bactrim DS] 800-160 mg tablet 1 tab PO BID 7 Days Qty: 14 0RF oxybutynin chloride 5 mg tablet 5 mg PO BID PRN (Reason: bladder spasms) Qty: 14 0RF Primary Care Provider: Andreas Calderon Referrals: Andreas Calderon MD [Primary Care Provider] - Activity Restrictions/Additional Instructions: Please use the lidocaine gel and the pain pill prescribed as directed to control your symptoms. Continue to keep your appointment with urology on but if your pain is not at a controllable level or you have any further concerns please return to the ER for repeat evaluation Disposition Disposition: Home, Self Care Discharge Date/Time: 02/15/23 02:37
[2023-02-15] MEDS: Morphine 4 MG/ML Syringe IV (02:28)
[2023-02-15 02:36] VITALS: BP 134/74; PULSE 76; RESP 16; O2SAT 99
== END 2023-02-15 02:37 | disposition home or self-care (01) ==
PROVIDERS: Emergency Provider Emergency Medicine; PCP Family Medicine Geriatric Medicine; Visit Provider Emergency Medicine
DX: N39.0 Urinary tract infection, site not specified (principal); T85.79XA Infection and inflammatory reaction due to other internal prosthetic devices, implants and grafts, initial encounter; I10 Essential (primary) hypertension; B96.20 Unspecified Escherichia coli [E. coli] as the cause of diseases classified elsewhere; E78.2 Mixed hyperlipidemia; N28.9 Disorder of kidney and ureter, unspecified; T85.848A Pain due to other internal prosthetic devices, implants and grafts, initial encounter; Y73.8 Miscellaneous gastroenterology and urology devices associated with adverse incidents, not elsewhere classified
CPT/HCPCS: 80048; 85025; 96361; 96374; 96376; 99283; J7030; A4216; J2405

== ENCOUNTER 2023-03-29 12:52 | Emergency (ER) | payer MEDICARE, BC, SELFPAY ==
[2023-03-29 12:53] VITALS: BP 183/98; PULSE 104; RESP 16; TEMP 36.4; O2SAT 93; BMI 31.6
[2023-03-29] MEDS: Oxymetazoline 0.05% 1 SPRAY SPRAY.BTL 2 SPRAY NASAL (13:54)
--- NOTE | 2023-03-29 14:06 | EDS_ITS ---
HPI History of Present Illness Chief Complaint: Nosebleed Informant: patient and spouse/S.O. Narrative Narrative: 78-year-old male presenting to the emergency room with epistaxis. Patient recently underwent prostate biopsy last week and [facility] the [facility]. He ended up being admitted to the hospital diagnosed with congestive heart failure and returned home on home oxygen. This morning he had epistaxis. It resolved upon arrival to the emergency department. He is not on a blood thinner. He notes his blood pressure has been higher than normal and today was instructed by cardiology to increase his Lasix. Patient notes that he has coughed up some blood/blood clots but most of the bleeding was coming from the right naris. He does not have humidification system on his concentrator per him. He has not had problems with epistaxis in the past [facility] Medical History Abnormal EKG Cardiology follow-up encounter Essential hypertension Familial polyposis History of edema History of irregular heartbeat History of pain when walking History of stress test Hypertension Kidney stones LBBB (left bundle branch block) Mitral valve insufficiency Mixed hyperlipidemia Non-smoker Pre-operative cardiovascular examination Prostate disease Restless legs Scarlet fever Shortness of breath on exertion Wears glasses Home Medications multivitamin 1 tab PO DAILY 04/21/22 [History Last Taken Unknown] omega 7-fwe-onz-fish oil 60 mg-90 mg-500 mg capsule (Fish Oil) 1 cap PO BID 04/21/22 [History Last Taken Unknown] sulindac 150 mg tablet 150 mg PO BID 04/21/22 [History Last Taken Unknown] triamterene 37.5 mg-hydrochlorothiazide 25 mg capsule 1 cap PO DAILY 04/21/22 [H istory Last Taken Unknown] zolpidem 10 mg tablet (Ambien) 5 mg PO QHS PRN sleep 04/21/22 [History Last Taken Unknown] sulfamethoxazole 800 mg-trimethoprim 160 mg tablet (Bactrim DS) 1 tab PO BID 7 days #14 tabs 02/12/23 [Rx Last Taken Unknown] lidocaine 5 % topical gel See Rx Instructions .Route .COMPLEX #113 grams 02/15/23 [Rx Last Taken Unknown] oxycodone-acetaminophen 5 mg-325 mg tablet (Percocet) 1 tab PO Q6H PRN pain 5 days #20 tabs 02/15/23 [Rx Last Taken Unknown] cyanocobalamin (vitamin B-12) 1,000 mcg capsule 1,000 mcg PO DAILY 03/22/23 [History Last Taken Unknown] furosemide 20 mg tablet 20 mg PO .COMPLEX #180 tabs 03/22/23 [Rx Last Taken Unknown] lisinopril 5 mg tablet 5 mg PO DAILY #90 tabs 03/22/23 [Rx Last Taken Unknown] metoprolol succinate 25 mg tablet,extended release 24 hr 25 mg PO DAILY #90 tabs 03/22/23 [Rx Last Taken Unknown] tamsulosin 0.4 mg capsule 0.4 mg PO QHS 03/22/23 [History Last Taken Unknown] trospium 20 mg tablet 20 mg PO DAILY 03/22/23 [History Last Taken Unknown] amlodipine 10 mg tablet 5 mg PO DAILY 03/29/23 [History Last Taken Unknown] Allergy/AdvReac Type Severity Reaction Status Date / Time No Known Allergies Allergy Verified 02/14/23 22:51 Family History Father Cancer Colon Mother Irregular heartbeat COPD (chronic obstructive pulmonary disease) Grandmother CVA (cerebral vascular accident) Surgical History History of colostomy reversal History of cystoscopy History of partial colectomy History of total right knee replacement Hx of colonoscopy Social History Smoking Status: Never smoker alcohol intake: current details: Rare substance use type: does not use caffeine: Yes Type: coffee ROS ROS ED Constitutional Constitutional ED: Denies chills or weight loss Eyes Eyes: Denies change in vision or diplopia ENT ENT ED: Reports other Details: Epistaxis ; Denies ear pain, rhinorrhea or sore throat Cardiovascular Cardiovascular: Denies chest pain, orthopnea, palpitations or racing heartbeat Respiratory/Chest Respiratory/Chest: Reports cough, dyspnea and dyspnea on exertion; Denies orthopnea Gastrointestinal Gastrointestinal: Denies abdominal pain, diarrhea, nausea or vomiting Genitourinary Genitourinary ED: Reports other Details: Recent urinary retention prostate abscess UTI and prostate biopsy ; Denies dysuria, hematuria or urinary frequency Musculoskeletal Musculoskeletal: Denies arthralgias or myalgias Integumentary Denies abscess or rash Neurologic Neurologic: Denies headache(s) or weakness Psychiatric Psychiatric: Denies anxiety, depression, suicidal ideation or suicidal thoughts Endocrine Endocrinology: Denies polydipsia, polyphagia or polyuria Allergic/Immunologic Allergic/Immunologic ED: Denies mouth swelling, tongue swelling or urticaria EXAM Physical Exam Const Vital Signs: 03/29/23 12:53 Temperature 97.5 F L Temperature Source Oral Pulse Rate 104 H Respiratory Rate 16 Blood Pressure 183/98 H Blood Pressure Mean 126 Pulse Ox 93 Oxygen Delivery Method Nasal Cannula Oxygen Flow Rate (L/min) 3 Positive well nourished and well developed General Appearance ED: well developed HEENT Reports normocephalic, head/scalp atraumatic and moist mucous membranes HEENT Narrative: Bilaterally the patient shows evidence of recent bleeding in the anterior plexus. I do not see any bleeding posteriorly. He does not have any blood in the posterior pharynx. The tissue anteriorly appears friable. Eyes PERRL and EOMs intact bilaterally Neck no lymphadenopathy, supple and no JVD Resp normal respiratory effort and clear to auscultation bilaterally Cardio regular rate, regular rhythm and no murmurs GI normal to inspection, nondistended, normoactive bowel sounds and non-tender Palpation: soft Back/Spine no CVA tenderness and normal ROM Extremity normal to inspection General Extremety ED: Negative for edema General Extremity: Negative for edema Neuro oriented x3 and CN's II-XII intact bilaterally Sensorium / Orientation: alert Motor Exam: strength 5/5 throughout Psych mental status grossly normal Mood & Affect: Negative for depressed or tearful Skin no rashes or lesions noted and no wounds MDM MDM MDM Narrative Medical decision making narrative: I suspect that the epistaxis occurred due to dry conditions created from his home oxygen. I will recommend hydration/barrier protection with Vaseline twice a day. I also instructed him on the use of Afrin with gauze at home as well with direct pressure. Social work visited with him to see about getting humidification system for his home oxygen unit. At the current time as he is new to home oxygen and is not actively bleeding I do not wish to pack him and complicate matters further though he does realize that this may be an issue if he continues to bleed. Discharge Plan Triage Chief Complaint: Nosebleed ED Provider: Jeet Lynch Dx/Rx/DC Orders Clinical Impression: Acute anterior epistaxis, Essential hypertension, On home O2 Instructions: ED Epistaxis (Adult) Prescriptions: No Action triamterene-hydrochlorothiazid 37.5-25 mg capsule 1 cap PO DAILY omega 1-wrr-vxs-fish oil [Fish Oil] 60-90-500 mg capsule 1 cap PO BID multivitamin Tablet 1 tab PO DAILY sulindac 150 mg tablet 150 mg PO BID zolpidem [Ambien] 10 mg tablet 5 mg PO QHS PRN (Reason: sleep) sulfamethoxazole-trimethoprim [Bactrim DS] 800-160 mg tablet 1 tab PO BID 7 Days Qty: 14 0RF oxycodone-acetaminophen [Percocet] 5-325 mg tablet 1 tab PO Q6H PRN (Reason: pain) 5 Days Qty: 20 0RF lidocaine 5 % gel See Rx Instructions .ROUTE .COMPLEX Qty: 113 0RF Rx Instructions: Apply to the painful area every 3-4 hours as needed furosemide 20 mg tablet 20 mg PO .COMPLEX Qty: 180 3RF Rx Instructions: 20 mg orally daily: may take 2 tablets (40 mg) for weight gain of 3 lbs in 2 days; lisinopril 5 mg tablet 5 mg PO DAILY Qty: 90 3RF metoprolol succinate 25 mg tablet extended release 24 hr 25 mg PO DAILY Qty: 90 3RF trospium 20 mg tablet 20 mg PO DAILY Rx Instructions: administer on an empty stomach tamsulosin 0.4 mg capsule 0.4 mg PO QHS cyanocobalamin (vitamin B-12) 1,000 mcg capsule 1,000 mcg PO DAILY amlodipine 10 mg tablet 5 mg PO DAILY Primary Care Provider: Andreas Calderon Referrals: Andreas Calderon MD [Primary Care Provider] - As Needed Activity Restrictions/Additional Instructions: Should bleeding recur tear part a cottonball and soak it with Afrin and the medicine cup provided. Apply the cotton inside the naris and apply pressure to the nose for 15 minutes. If bleeding continues return to the emergency department. If bleeding resolves continue to hydrate the tissue with Vaseline twice a day
--- NOTE | 2023-03-29 15:32 | CM.ED ---
Social Work SW received referral from physician regarding oxygen. Patient does not have any portable tanks currently and needs O2 to leave ED. Pt reports that the company, [employer], are unable to deliver 02 until Wednesday. Pt could also use a humidifier due to nose bleed per physician. SW spoke with [employer] which reported they don't have anything about patient besides his name and they need medical testing information. SW explained that the patient received set up from [facility]. [facility] reports they need his testing and records before they can get oxygen for him. SW called [facility] which discharged patient. SW spoke with who reports note on patient record stating oxygen was setup with this company. CM gave number for that arranged O2, SW left voicemail. SW did fax [facility] the [facility] D/C order that is on record. Patient's daughter brought a different portable tank for discharging. Pt discharged, however patient will still need 02 and humidifier. [facility] and [facility] is aware of situation. SW will follow up as needed. Vanessa Durham ENVIRONMENTAL MAINTENANCE WORKER, [employer]
== END 2023-03-29 14:49 | disposition home or self-care (01) ==
LOC: ED 14:10
PROVIDERS: Emergency Provider Emergency Medicine; PCP Family Medicine Geriatric Medicine; Visit Provider Emergency Medicine
DX: R04.0 Epistaxis (principal); I11.0 Hypertensive heart disease with heart failure; I50.9 Heart failure, unspecified; E78.2 Mixed hyperlipidemia; Z79.899 Other long term (current) drug therapy; Z99.81 Dependence on supplemental oxygen
CPT/HCPCS: 99282